=== PATIENT | female | born 1980 | race Caucasian/White ===

== ENCOUNTER 2016-04-30 03:27 | Emergency (ER) | payer MEDICAID, OTHER ==
[~2016-04-30 03:27] MED LIST: AMOX500T2 PO; IBUP-1827 PO; NOMED; OMEP20TA86 PO; TRAM50TA2 PO
[2016-04-30 03:30] VITALS: BP 134/91; PULSE 107; RESP 16; O2SAT 100
--- NOTE | 2016-04-30 03:48 | ED.REPORT ---
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 Patient states that her eyes burn and are sensitive to light, wearing sunglasses to the ED. Patient reports that her eyes are more watery than usual. She reports having a stiff neck, headache, and lethargy. Patient slept almost all day yesterday. The patient recently cared for someone with ocular syphilis, administering their antibiotic eyedrops ( benzathine penicillin per patient). Patient denies having a rash. Nursing Notes Stated Complaint: RED, ITCHY EYES Chief Complaint: General Complaint Nursing Notes Reviewed: Yes Allergies: Coded Allergies: aspirin (Verified Allergy, Intermediate, 04/30/16) latex (Verified Allergy, Intermediate, Rash, 04/30/16) Scheduled Amoxicillin (Amoxicillin) 500 Mg Tablet 500 MG PO TID No Historical Medication (No Historical Medication) Ea DAILY Omeprazole (Omeprazole) 20 Mg Tablet.dr 20 MG PO BID Scheduled PRN Ibuprofen (Ibuprofen) 600 Mg Tablet 600 MG PO QID PRN PRN For Pain Tramadol (Tramadol) 50 Mg Tablet 100 MG PO Q6H PRN PRN For Pain General Time Seen by MD: 03:38 Chief Complaint Both eyes affected, Discharge..., Pain, Redness Hx Obtained From: Patient Arrived By: Walk-in Sudden in Onset?: No Onset Occurred: Yesterday Symptom Duration: Since onset Progression Since Onset: Gradually worsening Location: : Eye left: Eye right Quality: Burning, Painful Severity: Current: Moderate Severity: Maximum: Moderate Recent Healthcare: No recent doctor visit, No recent hospitalization Similar Sx Previous: No Past Medical History Past Medical History R wrist fx as child knee ligament injury Past Surgical History Reports: Smoking History Current Every Day Smoker Social History Alcohol Use: Denies alcohol use Drug Use: Denies drug use Other Social History: Good social support, , Local resident Ambulatory Status Independent Review of Systems Constitutional: Reports: Lethargy, Denies: Fever Eyes: Reports: Discharge bilateral, Eye pain bilateral, Redness bilateral Skin: Denies Rash Neurologic: Reports: Headache Complete sys rev & neg: except as marked. Musculoskeletal: Reports: Neck pain (neck stiff) Physical Exam Initial Vital Signs Vital Signs (First) Date Time Temp Pulse Resp B/P Pulse Ox O2 Delivery O2 Flow Rate FiO2 04/30/16 03:30 36.6 107 16 134/91 100 Room Air Initial VS: Reviewed, Vital signs abnormal Extremities: Vascular intact, Neuro intact Skin: Warm, Dry, No cyanosis Neurologic: Alert, Oriented, Nonfocal Psychiatric: Mood/affect normal, Behavior normal, Normal thought content Head / Eyes: Normocephalic, PERRL Conjunctiva / Sclera: Positive: Injected left, Injected right no signs of purulence or mattering General/Constitutional: Awake, Alert ENT: Airway patent, Mucous membranes moist Neck: Supple, No meningismus (does not appear to be guarding her neck) Respiratory / Chest: No respiratory distress, No stridor Cardiovascular: Regular rhythm Heart Rate / Rhythm: Positive: Tachycardia (mild) Interpretation & Diagnostics Lab Results Interpretation Test 04/30/16 05:20 Re-Eval/Medical Decision Med Decision/Clinical Course 36-year-old female concerned about ocular syphilis because of new onset of conjunctivitis symptoms after she helped to care for a person who has ocular syphilis. I would doubt that transition would occur in this manner and timeframe. RPR was drawn and is pending. She was given a dose of benzathine penicillin 2.4 million units IM. She was given flurbiprofen and gentamicin eyedrops. She will follow up with me in 2 days for further discussion and evaluation. Source of Hx: Old records Re-Evaluation/Progress : Time of Eval: 05:27 Patient Status: Condition improved Re-Evaluation/Progress Note: Patient feels improved in the ED. Patient was treated with antibiotics in the ED. She will be notified of her test results. Patient understands and agrees with the plan to be discharged home. Discharge instructions and follow-up discussed. All questions were addressed. Return to the ED warnings given. Counseled Regarding: Diagnosis, Need for follow-up, When/why to return to ED Discharge & Departure Primary Impression: Conjunctivitis Conjunctivitis type: acute Acute conjunctivitis type: unspecified Laterality: bilateral Qualified Code: H10.33 - Unspecified acute conjunctivitis, bilateral Disposition: Home Discharge Condition All VS Reviewed: Yes Condition: Stable Patient Instructions: Acute Diarrhea (ED), Syphilis (ED) Additional Instructions: You definitely have conjunctivitis, but the cause is uncertain at this point. A syphilis blood test is pending and if it is positive the assumption would be that your conjunctivitis is also caused by syphilis. You were given the first dose of penicillin for treatment of syphilis. Additionally you were given gentamicin eyedrops (antibiotic) and 4 ibuprofen eyedrops (painkiller) in case this is a standard bacterial infection.. Contact your regular provider in 2-3 days to get the results of your testing. If the syphilis test is positive you will definitely need more evaluation and treatment. Contact me at [phone] between the hours of 9 PM and 6 AM for the next couple of nights if you have any questions.. Scribe Attestation Portions of this note were transcribed by Litzy Whelan. I, Dr. Lau personally performed the history, physical exam and medical decision-making; I reviewed and confirmed the accuracy of the information in the transcribed note. Signed by: Don Ma, 04/30/2016 0529 Robinson Lau MD Apr 30, 2016 03:48 Litzy Whelan Apr 30, 2016 03:59
[2016-04-30] MEDS ORDERED: _Gentamicin 0.3% Oph Solution 5 mL AFFECT_EYE SCH (03:55)
[2016-04-30] MEDS: _Flurbiprofen 0.03% Oph Soln 2.5 mL AFFECT_EYE SCH ×2 (04:31→04:42)
[2016-04-30 05:35] VITALS: BP 128/82; PULSE 76; RESP 18; O2SAT 97
== END 2016-04-30 05:36 | disposition home or self-care (01) ==
LOC: SED 03:30
DX: H10.33 Unspecified acute conjunctivitis, bilateral (principal); M43.6 Torticollis; R51 Headache; R53.83 Other fatigue; F17.200 Nicotine dependence, unspecified, uncomplicated; Z20.2 Contact with and (suspected) exposure to infections with a predominantly sexual mode of transmission; Z88.6 Allergy status to analgesic agent
CPT/HCPCS: 36415; 86592; 87070; 87205; 96372; 99284; J0561